=== PATIENT | male | born 1985 | race Two or more races ===

== ENCOUNTER 2025-01-24 23:36 | Emergency (ER) | payer OTHER ==
[~2025-01-24] VITALS: Ht 152.4 cm; Wt 61.2 kg
[2025-01-25] MEDS ORDERED: RINGERS SOLUTION,LACTATED 1,000 ML IV STA (01:24)
[2025-01-25 02:01] LABS: ERYTHROCYTE SEDIMENTATION RATE 70 mm/hr (0-15)
[2025-01-25 02:04] LABS: BASO % 0.4 % (0.1-1.2); EOS # 0.12 (0.04-0.54); EOS % 1.3 % (0.7-7.0); LYMPH # 1.17 (1.18-3.74); LYMPH % 12.2 % (19.3-53.1); MEAN PLATELET VOLUME 9.40 fl (9.4-12.4); MONO # 0.76 (0.24-0.82); MONO % 7.9 % (4.7-12.5); NEUT # 7.44 (1.56-6.13); NEUT % 77.7 % (34.0-71.1); RED CELL DISTRIBUTION WIDTH 16.5 % (11.6-14.4)
[2025-01-25 02:12] LABS: INR 1.06
[2025-01-25 02:17] LABS: ALT/SGPT 15.0 U/L (12-78); AST/SGOT 11.0 U/L (15-37); BILIRUBIN TOTAL 0.16 mg/dL (0.3-1.2); BUN CREA RATIO 13.0 (7.0-25.0); CREATININE SERUM 1.21 mg/dL (0.70-1.30); GFR 67.48; GLOBULINA 4.2 G/DL (2.4-3.5); GLUCOSE FASTING 104.0 mg/dL (65-100); OSMOLALITY SERUM 288.0 MOSM/KG (275-295)
[2025-01-25 02:43] LABS: COVID-19 AG NEGATIVE (NEGATIVE)
== END 2025-01-25 04:59 | disposition home or self-care (01) ==
LOC: ER 23:36
DX: T67.9XXA Effect of heat and light, unspecified, initial encounter (principal); T67.5XXA Heat exhaustion, unspecified, initial encounter; Y92.89 Other specified places as the place of occurrence of the external cause; E86.0 Dehydration; B20 Human immunodeficiency virus [HIV] disease; Z88.2 Allergy status to sulfonamides; Z20.822 Contact with and (suspected) exposure to COVID-19